=== PATIENT | female | born 1960 | race Caucasian/White ===

== ENCOUNTER 2017-04-26 11:52 | Day surgery (SDC) | payer BC ==
[2017-04-25 08:30] VITALS: BMI 25.0
[~2017-04-26 11:52] MED LIST: LACTATED RINGERS 1,000 ML IV SCH; LIDOCAINE 1% 20 ML VIAL (10MG/ML) FOR IV START INTRADERMA PRN
[2017-04-26 12:22] VITALS: RESP 16; TEMP 97.5
[2017-04-26] MEDS ORDERED: PROPOFOL 10 MG/ML 20 ML VIAL IV ONE (12:36)
--- NOTE | 2017-04-26 13:19 | P.PCN ---
Date of Procedure: 04/26/17 Preoperative Diagnosis: Postoperative Diagnosis: Procedure(s) Performed: Procedure: Colonoscopy and biopsy. Preoperative diagnosis: Screening for neoplasia. Postoperative diagnosis: Diminutive polyp in the proximal right colon biopsied, otherwise, exam to the cecum within normal limits. Preparation: HalfLytely prep. Sedation: Was provided by anesthesia. Brief clinical history: The patient is a 56-year-old female who is scheduled for this evaluation for screening for neoplasia. She had a prior exam more than 10 years ago. The patient at this time has no new complaints. She does have history of irritable bowel syndrome and apparently has been losing weight unintentionally as well. No bleeding. Procedure: With the patient on her left lateral decubitus position and after informed consent and adequate sedation, the perianal area was inspected and it did not show any fissures or fistulas. There were no masses felt on digital rectal examination. The Olympus CFQ 160L video colonoscope was then inserted in the rectum in the usual fashion and advanced to the cecum. The mucosa appeared healthy. No obvious diverticular disease. There was a diminutive polyp in the proximal right colon which was biopsied but there were no large polyps or tumors. I retroflexed the endoscope in the rectum before the endoscope was withdrawn. The patient tolerated the procedure well. Plan: The patient was reassured. She will follow-up with you as planned and I recommended repeat exam in 5-7 years depending on the pathology results. Implants: Indications for Procedure: Operative Findings: Description of Procedure:
[2017-04-26 13:46] VITALS: BP 151/77; PULSE 41
== END 2017-04-26 14:00 | disposition home or self-care (01) ==
LOC: ORWHC2ENDO 11:52
DX: Z12.11 Encounter for screening for malignant neoplasm of colon (principal); D12.2 Benign neoplasm of ascending colon; M19.90 Unspecified osteoarthritis, unspecified site; J44.9 Chronic obstructive pulmonary disease, unspecified; Z85.118 Personal history of other malignant neoplasm of bronchus and lung; Z79.899 Other long term (current) drug therapy; Z88.5 Allergy status to narcotic agent; Z88.0 Allergy status to penicillin; Z72.0 Tobacco use
CPT/HCPCS: 88305; 45380; J2704

== ENCOUNTER 2023-10-10 14:21 | Emergency (ER) | payer BC, MEDICARE ==
--- NOTE | 2023-10-10 14:34 | ED ---
Fall HPI - General Source: patient, family, RN notes reviewed Mode of arrival: ambulatory Limitations: no limitations - History of Present Illness MD Complaint: fall <Mindy Kumari - Last Filed: 10/10/23 14:31> <Erica Del Rio - Last Filed: 10/10/23 23:01> - General Chief Complaint: Fall Stated Complaint: Fall-R wrist/Head injury Time Seen by Provider: 10/10/23 14:31 - History of Present Illness Initial Comments: This is a 63-year-old female who presents to the emergency department for a fall. States that she was making her 's bed, when she caught her foot and fell. She hit her head on the dresser and states that she has a laceration to the head. She also injured her right wrist and tailbone. She's not taking any blood thinners. Denies any loss of consciousness. (Mindy Kumari) 63-year-old female presenting for evaluation post fall. Patient was making the bed when she caught her foot in a blanket and fell. She hit the back of her head on her dresser and believes there is a laceration. She also admits to right wrist pain and tailbone pain. She denies blood thinners. No loss of consciousness. No chest pain, difficulty breathing, abdominal pain, nausea, vomiting, numbness, tingling, weakness. She does admit to some generalized soreness, she does have history of fibromyalgia. (Erica Del Rio) - Related Data Home Medications Medication Instructions Recorded Confirmed Ibuprofen [Motrin] 400 - 600 mg PO Q6HR PRN 04/25/17 04/25/17 Previous Rx's Medication Instructions Recorded Acetaminophen-Codeine 300-30mg 1 tab PO Q6H PRN 3 Days #12 tablet 10/10/23 [Tylenol w/codeine #3] Ondansetron Odt [Zofran Odt] 4 mg PO Q8HR PRN #20 tab 10/10/23 Allergies Allergy/AdvReac Type Severity Reaction Status Date / Time Penicillins Allergy Rash/Hives Verified 10/10/23 15:04 tramadol [From Ultram] Allergy Itching Verified 10/10/23 15:04 Review of Systems ROS Other: All systems not noted in ROS Statement are negative. <Mnidy Kumari - Last Filed: 10/10/23 14:31> ROS Other: All systems not noted in ROS Statement are negative. <Erica Del Rio - Last Filed: 10/10/23 23:01> ROS Statement: Those systems with pertinent positive or pertinent negative responses have been documented in the HPI. Past Medical History Past Medical History: Osteoarthritis (OA) History of Any Multi-Drug Resistant Organisms: None Reported Past Surgical History: Tubal Ligation Additional Past Surgical History / Comment(s): CLEFT PALATE REPAIR-MULTIPLE SURGERIES Past Anesthesia/Blood Transfusion Reactions: Motion Sickness Past Psychological History: No Psychological Hx Reported Past Alcohol Use History: Rare Additional Past Alcohol Use History / Comment(s): STARTED SMOKING AT AGE 15 QUIT 1999 SMOKED 2 1/2-3PPD Past Drug Use History: None Reported - Past Family History Mother Family Medical History: Cancer Additional Family Medical History / Comment(s): LUNG CANCER <Mindy Kumari - Last Filed: 10/10/23 14:31> General Exam <Mindy Kumari - Last Filed: 10/10/23 14:31> Limitations: no limitations General appearance: alert, in no apparent distress Expanded Head exam: Present: laceration (2cm, occipital) Eye exam: Present: normal appearance, PERRL, EOMI Pupils: Present: normal accommodation Neck exam: Present: normal inspection Respiratory exam: Present: normal lung sounds bilaterally. Absent: respiratory distress, wheezes, rales, rhonchi, stridor Cardiovascular Exam: Present: regular rate, normal rhythm, normal heart sounds. Absent: systolic murmur, diastolic murmur, rubs, gallop, clicks Right Hand Wrist exam: Present: tenderness, swelling. Absent: full ROM Vascular: Present: radial pulse (2+). Absent: vascular compromise Neurological exam: Present: alert, oriented X3 Expanded Patient oriented to: Present: person, place, time Speech: Present: fluid speech Cranial nerves: EOM's Intact: Normal Eye Response: (4) open spontaneously Motor Response: (6) obeys commands Verbal Response: (5) oriented [place] Total: 15 Psychiatric exam: Present: normal affect, normal mood Skin exam: Present: warm, dry Expanded Type of lesion: Present: laceration (2cm occipital scalp) <Erica Del Rio - Last Filed: 10/10/23 23:01> - General Exam Comments Initial Comments: Visual Physical Exam Vital signs reviewed General: Well-appearing, nontoxic, no acute distress. Head: Laceration left side of head Eyes: PERRLA, EOMI ENT: Airway patent Chest: Nonlabored breathing Skin: No visual rash, normal skin tone Neuro: Alert and oriented 3 Musculoskeletal: No gross abnormalities (Mindy Kumari) Course Vital Signs 10/10/23 10/10/23 15:01 18:00 Temperature 98.2 F 98.1 F Pulse Rate 67 72 Respiratory 20 18 Rate Blood Pressure 137/68 122/76 O2 Sat by Pulse 95 98 Oximetry Procedures - Laceration Laceration #1 Consent Obtained: verbal consent Indication: laceration Site: scalp Size (cm): 2 Description: linear Depth: simple, single layer Anesthetic Used: lidocaine 1%, with epi Anesthesia Technique: local infiltration Pre-repair: wound explored Type of Sutures: other (jean) Number of Sutures: 2 Patient Tolerated Procedure: well <Erica Del Rio - Last Filed: 10/10/23 23:01> Medical Decision Making <Mindy Kumari - Last Filed: 10/10/23 14:31> <Erica Del Rio - Last Filed: 10/10/23 23:01> - Medical Decision Making I performed the QuickNote portion of this chart. Signed Mindy Kumari PA-C. (Mindy Kumari) Was pt. sent in by a medical professional or institution ([facility], [employer]ST[employer] TURRET LATHE OPERATOR, urgent care, hospital, or alf...) When possible be specific @ -No Did you speak to anyone other than the patient for history (EMS, parent, family, police, friend...)? What history was obtained from this source @ -No Did you review nursing and triage notes (agree or disagree)? Why? @ -I reviewed and agree with nursing and triage notes Were old charts reviewed (outside hosp., previous admission, EMS record, old EKG, old radiological studies, urgent care reports/EKG's, alf records)? Report findings @ -No old charts were reviewed Differential Diagnosis (chest pain, altered mental status, abdominal pain women, abdominal pain men, vaginal bleeding, weakness, fever, dyspnea, syncope, headache, dizziness, GI bleed, back pain, seizure, CVA, palpatations, mental health, musculoskeletal)? @ -Differential Musculoskeletal Muscular strain, contusion, ligament sprain, fracture, arthritis, septic arthritis, bursitis, cellulitis, muscle spasm, nerve compression, DVT, arterial occlusion, herpes zoster, electrolyte abnormality, tumor.... This is not meant to be in all inclusive list EKG interpreted by me (3pts min.). @ -As above X-rays interpreted by me (1pt min.). @ -X-ray right wrist shows questionable subtle nondisplaced hairline fracture of the distal radius X-ray sacrum and coccyx shows no acute fracture. Calcifications in pelvis possibly related to the uterus or ovaries. Uterine fibroid in the differential diagnosis. Recommend follow-up pelvic ultrasound for confirmation. CT interpreted by me (1pt min.). @ -CT shows no acute intracranial process. Right posterior scalp laceration with small subcutaneous edema/hematoma. No evidence of skull fracture. No evidence of cervical spine fracture. Mild multilevel degenerative disc disease U/S interpreted by me (1pt. min.). @ -None done What testing was considered but not performed or refused? (CT, X-rays, U/S, labs)? Why? @ -None What meds were considered but not given or refused? Why? @ -None Did you discuss the management of the patient with other professionals (professionals i.e. , PA, [employer] T[employer] LATHE OPERATOR, lab, RT, psych nurse, child protective services social worker, provider service representative, teacher, hydrographical technical officer, case loader operator)? Give summary @ -No Was smoking cessation discussed for >3mins.? @ -No Was critical care preformed (if so, how long)? @ -No Were there social determinants of health that impacted care today? How? (Homelessness, low income, unemployed, alcoholism, drug addiction, transportation, low edu. Level, literacy, decrease access to med. care, usp, rehab)? @ -No Was there de-escalation of care discussed even if they declined (Discuss DNR or withdrawal of care, Hospice)? DNR status @ -No What co-morbidities impacted this encounter? (DM, HTN, Smoking, COPD, CAD, Cancer, CVA, ARF, Chemo, Hep., AIDS, mental health diagnosis, sleep apnea, morbid obesity)? @ -None Was patient admitted / discharged? Hospital course, mention meds given and route, prescriptions, significant lab abnormalities, going to OR and other pertinent info. @ -63-year-old female presenting for evaluation post fall. Fell backwards landed on her bottom with her arms out for support and hit her head on her dresser. She does have a laceration to the occipital portion of the scalp no blood thinners or loss of consciousness. Patient is evaluated via quick note protocol and x-rays of the wrist and sacrum and coccyx are obtained. Patient was then placed in a room and evaluated by myself. She did complain of some generalized pain to the shoulders and neck. No focal neurological deficits. CT brain and cervical spine was obtained. Wrist x-ray shows subtle nondisplaced hairline fracture of the distal radius. Remainder of imaging is negative. The laceration is repaired, see procedure note for details. Splint is applied. Patient is provided with orthopedic referral. Follow-up with PCP. Report back to ER with any new or worsening symptoms. Discussed return parameters and answered all questions. Patient conveyed verbal understanding and agreed to the plan. I discussed this case in detail with my attending Dr. Allen Undiagnosed new problem with uncertain prognosis? @ -No Drug Therapy requiring intensive monitoring for toxicity (Heparin, Nitro, Insulin, Cardizem)? @ -No Were any procedures done? @ -Laceration repair, splint applied Diagnosis/symptom? @ -Wrist fracture, scalp laceration, fall Acute, or Chronic, or Acute on Chronic? @ -Acute Uncomplicated (without systemic symptoms) or Complicated (systemic symptoms)? @ -Uncomplicated Side effects of treatment? @ -No Exacerbation, Progression, or Severe Exacerbation? @ -No Poses a threat to life or bodily function? How? (Chest pain, [place], [place], pneumonia, PE, COPD, DKA, ARF, appy, cholecystitis, CVA, Diverticulitis, Homicidal, Suicidal, threat to staff... and all critical care pts) @ -No (Erica Del Rio) Disposition <Mindy Kumari - Last Filed: 10/10/23 14:31> Is patient prescribed a controlled substance at d/c from ED?: Yes When asked, does pt state using other controlled substances?: No If prescribed controlled substance>3 days was MAPS reviewed?: Prescribed <3 Days If opioid is for acute pain is fill amount 7 days or less?: Yes Time of Disposition: 17:58 <Erica Del Rio - Last Filed: 10/10/23 23:01> Clinical Impression: Wrist fracture, Fall Disposition: HOME SELF-CARE Condition: Good Instructions (If sedation given, give patient instructions): Wrist Fracture in Adults (ED), Head Injury (ED), Fall Prevention (ED) Additional Instructions: Follow-up with orthopedics and PCP. Report back to ER with any new or worsening symptoms. Prescriptions: Acetaminophen-Codeine 300-30mg [Tylenol w/codeine #3] 1 tab PO Q6H PRN 3 Days #12 tablet PRN Reason: Pain Ondansetron Odt [Zofran Odt] 4 mg PO Q8HR PRN #20 tab PRN Reason: Nausea Referrals: None,Stated [Primary Care Provider] - 1-2 days Honey Aragon DO [Doctor of Osteopathic Medicine] - 1-2 days Ousmane Burgos DO [STAFF PHYSICIAN] - 1-2 days
[2023-10-10] MEDS ORDERED: ONDANSETRON ODT 4 MG TAB PO STA (15:48)
[2023-10-10] MEDS ORDERED: HYDROcodone/APAP 7.5-325MG 1 EACH TAB PO ONE (15:48)
--- NOTE | 2023-10-10 15:55 | XR ---
EXAMINATION TYPE: XR sacrum coccyx DATE OF EXAM: 10/10/2023 COMPARISON: NONE HISTORY: Pain Three views are submitted. Sacrum is intact. Bilateral SI joint arthropathy. Mild arthropathy of the symphysis pubis. Nonspecific calcification in the right hemipelvis possibly related to uterus and uterine fibroids. La teral view is limited due to technique. Assessment coccyx is markedly limited.. Coccyx appears to be intact. Visualized pelvic structures intact. IMPRESSION: 1. No acute fracture. 2. Calcifications in pelvis possibly related to the uterus or ovaries. Uterine fibroid in the differe ntial diagnosis. Recommend follow-up pelvic ultrasound for confirmation.
--- NOTE | 2023-10-10 15:57 | XR ---
EXAMINATION TYPE: XR wrist complete RT DATE OF EXAM: 10/10/2023 COMPARISON: NONE HISTORY: Pain TECHNIQUE: Four views submitted. FINDINGS: The first carpal metacarpal and its trapezial scaphoid arthropathy. There is a subtle lucency involvi ng the distal radius transverse orientation. I question a subtle step off on the AP view of the wrist . IMPRESSION: 1. Question subtle nondisplaced hairline fracture of the distal radius recommend a CT scan.
--- NOTE | 2023-10-10 17:15 | CT ---
EXAMINATION TYPE: CT brain cspine wo con CT DLP: 1166.8 mGycm, Automated exposure control for dose reduction was used. DATE OF EXAM: 10/10/2023 4:58 PM COMPARISON: None. CLINICAL INDICATION:Female, 63 years old with history of fall; Fall. Laceration to posterior head. No LOC. TECHNIQUE: Brain: Multiple axial CT images of the brain were obtained without IV contrast. Cspine: Axial CT images from the skull base to the inferior aspect of T2 we obtained without intraven ous contrast. Coronal and sagittal reformatted images were also reviewed. FINDINGS: Brain: Extra-axial spaces: No abnormal extra-axial fluid collections. Ventricular system: Within normal limits Cerebral parenchyma: No acute intraparenchymal hemorrhage or mass effect. The cuellar-white junction is well differentiated. Cerebellum: Unremarkable. Mass effect: No evidence of midline shift. Intracranial vasculature: unremarkable Soft tissues: Right posterior scalp laceration with small subcutaneous edema/hematoma. Calvarium/osseous structures: No depressed skull fracture. Paranasal sinuses and mastoid air cells: Clear. Visualized orbits: Orbital contents are intact. Cervical spine: Fracture: None. Osseous structures: Multilevel degenerative disc disease changes with endplate spurring and disc oste ophyte complex's. Vertebral alignment: Within normal limits. Spinal canal/Neural Foramina: Disc osteophyte complexes at C5-C6 with at least mild spinal canal sten osis. No evidence for significant neural foraminal stenosis. Neck soft tissues: Prevertebral soft tissues are within normal limits. Other: The airway is patent. The lung apices are clear. IMPRESSION: 1. No acute intracranial process. 2. Right posterior scalp laceration with small subcutaneous edema/hematoma. No evidence of skull fra cture. 3. No evidence of cervical spine fracture. 4. Mild multilevel degenerative disc disease.
[2023-10-10 18:42] VITALS: BP 122/76; PULSE 72; RESP 18; TEMP 98.1
== END 2023-10-10 18:00 | disposition home or self-care (01) ==
LOC: EC 14:21
DX: S52.591A Other fractures of lower end of right radius, initial encounter for closed fracture (principal); S01.01XA Laceration without foreign body of scalp, initial encounter; Z88.0 Allergy status to penicillin; Z88.8 Allergy status to other drugs, medicaments and biological substances; W18.30XA Fall on same level, unspecified, initial encounter
CPT/HCPCS: 12001; 70450; 72125; 72220; 99284